=== PATIENT | female | born 2000 | race Caucasian/White ===

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

== ENCOUNTER 2023-05-10 06:46 | Inpatient (IN) ==
--- NOTE | 2023-04-26 13:45 | History & Physical Report ---
Date of Service April 26, 2023 Assessment & Plan (1) Breech presentation: Plan: Repeat low segment section. (2) Macrosomia: (3) Intrauterine : (4) History of delivery: History of Present Illness Chief Complaint: Intrauterine 39 weeks 2 days. Breech presentation. Estimated weight over 9 pounds. Previous section. Primary Care Provider: NO PCP Patient is a 23-year-old 2 para 1. Patient's been followed in our office for care and delivery. Patient's been well dated with a first trimester ultrasound. Her due date is 05/15/2023. Patient previously had a C- section for breech presentation. The baby weighed 10 pounds 3 ounces. She presently has an estimated weight of over 9 pounds with this . She had an ultrasound done on 04/14/2023 which confirmed a breech presentation. Patient is being scheduled for repeat section. Allergies Allergy/AdvReac Type Severity Reaction Status Date / Time No Known Allergies Allergy Unverified 10/05/22 09:08 Home Medications Medication Instructions Recorded Confirmed Type Control Pills 1 tab PO DAILY #0 tabs 10/17/16 History Review of Systems Review of Systems: All systems reviewed & are unremarkable except as noted in HPI & below Physical Exam Physical Exam: Patient is a well-developed well-nourished 23-year-old white female alert oriented x3 in no acute distress. Patient had a normal light reflex in both the ears. Trachea was midline. There is no cervical adenopathy. Lungs were clear to auscultation and percussion. Breast examination was normal. There was no costo-vertebral angle tenderness. Abdomen was soft and nontender. There was a well-healed Pfannenstiel scar. Estimated weight was over 9 pounds. Pelvic exam revealed a floating breech presentation. Cervix was posterior and closed. There was no calf tenderness. Results & Data Results & Data Diagnostic Findings Breech presentation. Estimated weight over 9 pounds.
--- NOTE | 2023-05-04 13:50 | Anesthesiology Consultation ---
Date of Service May 04, 2023 Assessment & Plan (1) Encounter for pre-operative examination: Chart Review Chart Review: Acceptable Risk for Surgery History Surgery Operation Date: 05/10/23 08:50 Proposed Procedures p Repeat Section in LD - Quan Welch MD Height/Weight Height: 5 ft 4.5 in Weight: 97.069 kg Allergies Allergy/AdvReac Type Severity Reaction Status Date / Time ibuprofen AdvReac Vomiting, Verified 05/03/23 11:05 epistaxis Medications Home Medications Medication Instructions Recorded Confirmed Last Taken 1 tab PO QAM 05/03/23 05/03/23 Unknown Past Medical History Medical History No known health problems Past Surgical History Surgical History H/O reduction of closed fracture History of Social History Smoking Status: Never smoker Do You Dip or Chew Tobacco: No Hx Alcohol Use: No Hx Substance Use: No substance use type: does not use Testing Laboratory Results Laboratory Tests 05/03/23 11:56 Hgb 10.6 L Plt Count 255 Potassium 3.8 Creatinine 0.64
[~2023-05-10 06:46] MED LIST: CITRIC ACID/SODIUM CITRATE 15 ML UDC PO SCH; LACTATED RINGER'S 1,000 ML IV SCH; cefOXitin 2,000 MG in DEXTROSE 5 % MINI-B 50 ML IV SCH
[2023-05-10] MEDS ORDERED: LACTATED RINGER'S 1,000 ML IV SCH ×3 (07:45→12:15)
[2023-05-10 08:39] LABS: Basophils # (auto) 0.04 K/uL (0.00-0.20); Basophils % (auto) 0.5 %; Eosinophils # (auto) 0.06 K/uL (0.00-0.50); Eosinophils % (auto) 0.8 %; Hematocrit (blood only) 31.3 % (37.0-47.0); Hemoglobin 10.2 g/dl (12.0-16.0); Immature Granulocytes # (auto) 0.07 K/uL (0.01-0.20); Immature Granulocytes % (auto) 0.9 %; Lymphocytes # (auto) 1.47 K/uL (1.20-3.40); Lymphocytes % (auto) 18.5 %; Mean Corpuscular Hemoglobin 29.1 pg (25.0-34.0); Mean Corpuscular Hgb Conc 32.6 g/dL (32.0-36.0); Mean Corpuscular Volume 89.2 fL (80.0-100.0); Mean Platelet Volume 10.9 fL (9.4-12.4); Monocytes # (auto) 0.74 K/uL (0.11-0.59); Monocytes % (auto) 9.3 %; Neutrophils # (auto) 5.55 K/uL (1.40-6.50); Platelet Count 230 K/uL (130-400); RDW Coefficient of Variation 12.9 % (11.5-14.5); Red Blood Count 3.51 M/uL (4.20-5.40); White Blood Count 7.93 K/ul (4.8-10.8)
[2023-05-10 08:57] LABS: INR 0.9 (0.9-1.1); Partial Thromboplastin Ratio 0.8; Partial Thromboplastin Time 23.8 Seconds (21.0-31.0)
[2023-05-10] MEDS ORDERED: MoRPHine SULFATE PF 1 MG/ML 10 ML AMP/VIAL ONE (09:18)
[2023-05-10 10:04] LABS: Calcium 8.6 mg/dl (8.6-10.3); Potassium 3.7 mmol/L (3.5-5.1)
--- NOTE | 2023-05-10 10:30 | History & Physical Bridge Note ---
Date of Service May 10, 2023 History & Physical Bridge Note I have examined the patient, reviewed the History & Physical and in the interval since the performance of the History & Physical I have noted the following changes of clinical significance: no changes noted
[2023-05-10] MEDS ORDERED: OXYTOCIN 10 UNITS/ML VIAL ONE (11:02)
[2023-05-10] MEDS ORDERED: KETOROLAC 30 MG/ML VIAL ONE (11:02)
[2023-05-10] MEDS ORDERED: OXYTOCIN 10 UNITS/ML 10ML VIAL IM ONE (11:20)
[2023-05-10] MEDS ORDERED: METOCLOPRAMIDE HCL INJ 5 MG/ML 2 ML VIAL ONE (11:36)
[2023-05-10] MEDS ORDERED: ONDANSETRON INJ 2 MG/ML 2 ML VIAL ONE (12:08)
[2023-05-10] MEDS ORDERED: KETOROLAC 30 MG/ML VIAL IV PRN ×2 (12:14→12:37)
[2023-05-10] MEDS ORDERED: MEPERIDINE HCL 50 MG/ML CARP IV PRN (12:14)
[2023-05-10] MEDS ORDERED: DIPHTHERIA/TETANUS/PERTUSSIS Vaccine (Tdap, Age 7+yrs) 0.5mL SYR/VL IM ONE (12:14)
[2023-05-10] MEDS ORDERED: MAGNESIUM HYDROXIDE SUSP 30 ML UDC PO PRN (12:14)
[2023-05-10] MEDS ORDERED: HYDROCORTISONE ACETATE 25 MG SUPP PR PRN (12:14)
[2023-05-10] MEDS ORDERED: BENZOCAINE 20% SPRY 85 APPLN/85 GM CAN EXT PRN (12:14)
[2023-05-10] MEDS ORDERED: SENNA 8.6 MG TAB PO PRN (12:14)
--- NOTE | 2023-05-10 12:14 | Post Operative Brief Note ---
Immediate Post Op Note v1 Date of Surgery May 10, 2023 Pre & Post Diagnosis Operation Date: 05/10/23 08:50 Pre-Op Diagnosis: Term , Previous Section Post-Op Diagnosis: Term , Previous Section I identified the patient and participated in the time-out.: Yes Procedure Operation Date: 05/10/23 08:50 Actual Procedures p Repeat Section [facility] [place] @ 1117 - Quan Welch MD Surgeon Quan Welch MD [employer] Dr Reynolds Estimated Blood Loss 600 Findings See Below omental adhesions abdominal hernia Drains Chiang Catheter (draining clear yellow urine) Complications none
--- NOTE | 2023-05-10 12:28 | Operative Report ---
Post Operative Report Pre & Post Diagnosis Operation Date: 05/10/23 08:50 Pre-Op Diagnosis: Term , Previous Section Post-Op Diagnosis: Term , Previous Section I identified the patient and participated in the time-out.: Yes Procedure Operation Date: 05/10/23 08:50 Actual Procedures p Repeat Section [facility] [place] @ 1117 - Quan Welch MD Surgeon Quan Welch MD [facility] Dr Reynolds Estimated Blood Loss 600 Findings Consistent with Post-Op Diagnosis breech presentation Specimens placenta Anesthesia Type Spinal Complications none Indications breech presentation previous section Description of Procedure Patient was brought to the OR correctly identified by armband and conversation. Cihang catheter was inserted aseptically into the bladder. Compression stockings were applied. Lower abdomen was painted with an alcohol-based sterilizing solution. Prior to these procedures the patient had been administered spinal anesthesia. Patient was draped in usual sterile fashion. The adequacy of the anesthesia was checked and found to be good. Timeout was taken. A Pfannenstiel incision was made through her previous scar. The incision was carried down to the anterior fascia by sharp dissection. The fascia was incised transversely. Recti muscles were from the fascia. The recti muscles were then in the midline there was noted to be an abdominal hernia towards the umbilicus on the patient's left side. We had a dissected out the omentum from the pocket. Free the omentum from the undersurface of the abdomen. This exposed the lower uterine segment. An incision was made above the vesicouterine fold. The bladder was moved out of the operative field. Lower uterine segment was scored with a knife. Then widened laterally bluntly with the 2 fingers. [place] breech presentation was noted at this time. The breech was delivered then the arms and the head were delivered without difficulty. Cord was allowed to pulse for 1 minute. Cord was then clamped. Cord blood was taken. The placenta was removed manually. Uterus tubes and ovaries were brought out through the abdominal incision. 10 units of Pitocin was injected into the myometrium. Uterine cavity was cleansed with a clean sponge. The lower uterine defect was then approximated first with a heavy-duty chromic. The stitch stitches were placed in a vertical fashion. Then a layer of Vicryl was placed over this placing the sutures in a horizontal fashion. This approximated the fascial edges and created good hemostasis the peritoneal edges were then restored with a running 3-0 chromic catgut. Uterus tubes and ovaries were inspected and found to be normal. Pelvis was cleansed of all blood clots and debris. Uterus tubes and ovaries were reinserted into the abdominal cavity. A careful anatomical approximation of the anterior abdominal wall was now performed. The peritoneal hernia sac was then reduced by approximating the peritoneum. Recti muscles were approximated with interrupted [id number] sutures over this. Defect in the anterior fascial wall was then approximated with 4 interrupted [id number] sutures of heavy Vicryl. Following this the fascial layer was closed horizontally with a continuous interlocking suture of Vicryl run from each edge and tied in the middle. Subcu was approximated with a running plain. Skin edges were approximated with lillian. Patient tolerated the procedure well left the OR in good condition. I attest to the content of the Intraoperative Record and any orders documented therein. Any exceptions are noted below.
[2023-05-10] MEDS ORDERED: MEPERIDINE HCL 25 MG/ML CARP/VIAL IV PRN (12:37)
[2023-05-10] MEDS ORDERED: NALOXONE HCL 0.4 MG/1 ML VIAL/CARP IV PRN (12:37)
[2023-05-10] MEDS ORDERED: ePHEDrine sulfate 50 MG/ML AMP IV PRN (12:37)
[2023-05-10] MEDS ORDERED: LACTATED RINGER'S 500 ML IV PRN (12:37)
[2023-05-10] MEDS ORDERED: NALOXONE HCL 1 MG in SODIUM CHLORIDE 0.9% 1,000 ML IV PRN (12:37)
[2023-05-10] MEDS ORDERED: MoRPHine SULFATE PF 1 MG/ML 10 ML AMP/VIAL INT SPINAL ONE (12:37)
[2023-05-10] MEDS ORDERED: NALOXONE HCL 0.08 MG in SYRINGE 1.8 ML IV PRN (12:37)
[2023-05-10] MEDS ORDERED: HYDROmorphone INJ 0.5 MG/0.5 ML SYR IV PRN (12:37)
[2023-05-10] MEDS ORDERED: MoRPHine SULFATE 2 MG/ML CARP IV PRN (12:37)
[2023-05-10] MEDS ORDERED: NALBUPHINE HCL 5 MG in SYRINGE 0 ML IV PRN (12:37)
[2023-05-10] MEDS ORDERED: diphenhydrAMINE 50 MG/ML VIAL IV PRN (12:37)
--- NOTE | 2023-05-10 12:38 | Anesthesiology Progress Note ---
Date of Service May 10, 2023 Anesthesia Post Procedure Vital Signs Vital Signs: Temp Pulse Resp BP Pulse Ox 05/10/23 12:32 73 100 05/10/23 12:30 67 121/70 05/10/23 12:27 69 99 05/10/23 12:23 61 116/64 05/10/23 12:22 77 97 05/10/23 12:20 69 92 05/10/23 12:17 70 99 05/10/23 12:12 98 05/10/23 12:12 62 05/10/23 12:12 65 119/68 05/10/23 07:58 36.9 C 75 18 132/80 05/10/23 07:12 75 132/80 Transfer of Care Handoff Completed per policy Notes Mental Status: alert / awake / arousable Nausea / Vomiting: adequately controlled Pain: adequately controlled Airway Patency, RR, SpO2: stable & adequate BP & HR: stable & adequate Hydration State: stable & adequate Neuraxial Anesthesia: was administered and sensory block is resolving Anesthetic Complications: no major complications apparent and Pt Satisfied with anesthetic care
[2023-05-10] MEDS ORDERED: DC INTRASPINAL MORPHINE SCH (12:45)
[2023-05-10] MEDS ORDERED: NO NARCOTICS OR SEDATIVES SCH (12:45)
[2023-05-10] MEDS ORDERED: SODIUM CHLORIDE 0.9% 1,000 ML IV SCH (12:45)
[2023-05-10] MEDS: OXYTOCIN 20 UNITS/LR 1,002 ML IV SCH ×2 (14:13→22:02)
[2023-05-10] MEDS ORDERED: ONDANSETRON INJ 2 MG/ML 2 ML VIAL IV PRN (15:34)
[2023-05-10] MEDS ORDERED: SODIUM CHLORIDE 0.9% 250 ML IV PRN (15:46)
[2023-05-10] MEDS: SIMETHICONE 80 MG CHEW PO SCH ×3 (16:34→20:48)
[2023-05-10] MEDS: DOCUSATE SODIUM 100 MG CAP PO SCH (20:48)
[2023-05-11] MEDS ORDERED: diphenhydrAMINE Capsule 25 MG CAP PO PRN (06:38)
[2023-05-11] MEDS ORDERED: ZOLPIDEM TARTRATE 5 MG TAB PO PRN (06:38)
[2023-05-11] MEDS ORDERED: ONDANSETRON INJ 2 MG/ML 2 ML VIAL IV PRN (06:38)
[2023-05-11] MEDS ORDERED: PROMETHAZINE HCL 25 MG in SODIUM CHLORIDE 0.9% 50 ML IV PRN (06:38)
[2023-05-11] MEDS ORDERED: diphenhydrAMINE 50 MG/ML VIAL IV PRN (06:38)
[2023-05-11 07:10] LABS: Basophils # (auto) 0.02 K/uL (0.00-0.20); Basophils % (auto) 0.2 %; Eosinophils # (auto) 0.04 K/uL (0.00-0.50); Eosinophils % (auto) 0.4 %; Hematocrit (blood only) 25.6 % (37.0-47.0); Hemoglobin 8.4 g/dl (12.0-16.0); Immature Granulocytes # (auto) 0.07 K/uL (0.01-0.20); Immature Granulocytes % (auto) 0.8 %; Lymphocytes # (auto) 1.17 K/uL (1.20-3.40); Lymphocytes % (auto) 12.7 %; Mean Corpuscular Hemoglobin 29.8 pg (25.0-34.0); Mean Corpuscular Hgb Conc 32.8 g/dL (32.0-36.0); Mean Corpuscular Volume 90.8 fL (80.0-100.0); Mean Platelet Volume 10.3 fL (9.4-12.4); Monocytes # (auto) 0.89 K/uL (0.11-0.59); Monocytes % (auto) 9.7 %; Neutrophils # (auto) 6.99 K/uL (1.40-6.50); Neutrophils % (auto) 76.2 %; Platelet Count 186 K/uL (130-400); RDW Coefficient of Variation 13.2 % (11.5-14.5); RDW Standard Deviation 43.8 fL (36.4-46.3); Red Blood Count 2.82 M/uL (4.20-5.40); White Blood Count 9.18 K/ul (4.8-10.8)
[2023-05-11] MEDS: SIMETHICONE 80 MG CHEW PO SCH ×4 (08:36→20:27)
[2023-05-11] MEDS: PRENATAL VITAMIN 1 TAB PO SCH (08:36)
[2023-05-11] MEDS: FERROUS SULFATE 325 MG TAB PO SCH (08:37)
[2023-05-11] MEDS: DOCUSATE SODIUM 100 MG CAP PO SCH ×2 (08:37→20:27)
[2023-05-11] MEDS: IBUPROFEN 600 MG TAB PO PRN ×2 (08:47→20:27)
[2023-05-11] MEDS ORDERED: ACETAMINOPHEN 325 MG TAB PO PRN (12:13)
--- NOTE | 2023-05-11 12:14 | Obstetrical Progress Note ---
Date of Service May 11, 2023 Assessment & Plan Admission and Anticipated Discharge Date Admission Date: May 10, 2023 Subjective abdomen soft and non tender passing flatus incision is clean and dry no calf tenderness ambulating well vaginal bleeding scant hgb 8.4 Results & Data Vital Signs (Past 12 Hours) Vital Signs Temp Pulse Resp BP Pulse Ox O2 Del Method 05/11/23 08:05 37.1 C 89 16 114/72 98 Room Air 05/11/23 05:20 18 96 05/11/23 04:40 18 96 05/11/23 03:05 36.9 C 80 18 109/68 96 Room Air 05/11/23 03:05 16 96 05/11/23 02:20 18 96 05/11/23 01:25 18 98
[2023-05-11] MEDS ORDERED: bisacodyL 5 MG TABEC PO SCH (20:00)
[2023-05-11] MEDS: oxyCODONE/ACETAMINOPHEN 5mg/325mg TAB PO PRN (20:27)
[2023-05-12] MEDS: oxyCODONE/ACETAMINOPHEN 5mg/325mg TAB PO PRN ×2 (03:16→08:17)
[2023-05-12] MEDS: IBUPROFEN 600 MG TAB PO PRN ×2 (03:16→08:17)
[2023-05-12 06:25] LABS: Hematocrit (blood only) 23.6 % (37.0-47.0); Hemoglobin 7.6 g/dl (12.0-16.0)
[2023-05-12] MEDS: FERROUS SULFATE 325 MG TAB PO SCH (08:16)
[2023-05-12] MEDS: DOCUSATE SODIUM 100 MG CAP PO SCH (08:17)
[2023-05-12] MEDS: PRENATAL VITAMIN 1 TAB PO SCH (08:17)
[2023-05-12] MEDS: SIMETHICONE 80 MG CHEW PO SCH (08:17)
--- NOTE | 2023-05-12 09:18 | Obstetrical Progress Note ---
Date of Service May 12, 2023 Assessment & Plan Admission and Anticipated Discharge Date Admission Date: May 10, 2023 Subjective abdomen soft and non tender incision is clean and dry no calf tenderness ambulating well vaginal bleeding scant hgb 7.4 Results & Data Vital Signs (Past 12 Hours) Vital Signs Temp Pulse Resp BP Pulse Ox O2 Del Method 05/12/23 08:30 36.4 C L 83 18 126/84 99 Room Air 05/12/23 03:10 36.7 C 82 18 111/71 99 Room Air
--- NOTE | 2023-05-12 09:51 | Discharge Summary ---
Date of Service May 12, 2023 Admission HPI Per Admitting Provider Patient is a 23-year-old 2 para 1. Patient's been followed in our office for care and delivery. Patient's been well dated with a first trimester ultrasound. Her due date is 05/15/2023. Patient previously had a C- section for breech presentation. The baby weighed 10 pounds 3 ounces. She presently has an estimated weight of over 9 pounds with this . She had an ultrasound done on 04/14/2023 which confirmed a breech presentation. Patient is being scheduled for repeat section. Discharge Data Consultations 05/10/23 07:43 Consult Anesthesiology Stat Procedures Performed Operation Date: 05/10/23 08:50 Actual Procedures p Repeat Section [facility] [place] @ 1117(Bilateral) - Quan Welch MD
--- NOTE | 2023-05-12 09:56 | Discharge Summary ---
Date of Service May 12, 2023 Admission HPI Per Admitting Provider Patient is a 23-year-old 2 para 1. Patient's been followed in our office for care and delivery. Patient's been well dated with a first trimester ultrasound. Her due date is 05/15/2023. Patient previously had a C- section for breech presentation. The baby weighed 10 pounds 3 ounces. She presently has an estimated weight of over 9 pounds with this . She had an ultrasound done on 04/14/2023 which confirmed a breech presentation. Patient is being scheduled for repeat section. Discharge Data Consultations 05/10/23 07:43 Consult Anesthesiology Stat Procedures Performed Operation Date: 05/10/23 08:50 Actual Procedures p Repeat Section [facility] [place] @ 1117(Bilateral) - Quan Welch MD Hospital Course (1) History of delivery: (2) Macrosomia: (3) Breech presentation: Plan Patient was followed in our office for care and delivery. Patient was well dated with a first trimester ultrasound. Patient had a previous section for breech presentation and macrosomia. At approximately 37 weeks patient was ultrasounded and found to have a breech presentation. Patient was admitted for repeat low segment section at 39 weeks and 2 days gestation. Patient underwent repeat low segment section under spinal anesthesia. At the time of surgery patient was found to have extensive omental adhesions and a hernia. After the infant was delivered and the placenta was removed. Careful anatomical approximation of the anterior abdomen was performed and recti muscles were approximated and hernial defect was closed. Estimated blood loss was 600 mL. Preoperative hemoglobin was 10.2. At the time of discharge her hemoglobin was 7.6. Patient remained afebrile throughout her postoperative course. Bowel sounds returned within 24 hours. On the second postoperative day she was ambulating well eating well. She requested discharge. She was given the usual postoperative instructions. And a prescription for Percocet for pain control. She was instructed to return in 1 week for removal of the lillian and for follow-up hemoglobin.
[2023-05-12] MEDS ORDERED: bisacodyL 10 MG SUPP PR PRN (12:14)
== END 2023-05-12 11:14 | disposition home or self-care (01) | DRG 788 ==
LOC: 4S1 06:46 → EDSTATUS 08:50 → 4E2 15:26